=== PATIENT | female | born 1950 | race Two or more races ===

== ENCOUNTER → 2016-08-30 | Outpatient (CLI) | payer MEDICARE, MEDICAID | END | disposition home or self-care (01) | LOC: MRI 09:42 | PROVIDERS: ATTEND Internal Medicine Gastroenterology | DX: K76.0 Fatty (change of) liver, not elsewhere classified (principal); K86.2 Cyst of pancreas | CPT/HCPCS: 74181 ==

== ENCOUNTER → 2017-04-05 | Outpatient (CLI) | payer MEDICARE, MEDICAID | END | disposition home or self-care (01) | LOC: US 08:39 | PROVIDERS: ATTEND Internal Medicine Gastroenterology | DX: K74.60 Unspecified cirrhosis of liver (principal); D64.9 Anemia, unspecified | CPT/HCPCS: 76700 ==

== ENCOUNTER → 2017-09-28 | Outpatient (CLI) | payer MEDICARE, MEDICAID | END | disposition home or self-care (01) | LOC: US 07:52 | PROVIDERS: ATTEND Internal Medicine Gastroenterology | DX: K76.89 Other specified diseases of liver (principal); K82.4 Cholesterolosis of gallbladder; D73.89 Other diseases of spleen | CPT/HCPCS: 76700 ==

== ENCOUNTER 2021-06-26 08:53 | Emergency (ER) | payer MEDICARE, MEDICAID ==
[~2021-06-26] VITALS: Ht 162.6 cm; Wt 68.0 kg
[~2021-06-26 08:53] MED LIST: AMLO10TA80 MT; ASPI-1497 MT; ATOR20TA MT; SERT50TA MT
[2021-06-26] MEDS ORDERED: KETOROLAC 30MG/ML VIAL IV STA (10:52)
[2021-06-26] MEDS ORDERED: KETOROLAC 15MG/ML VIAL IV NR (12:00)
[2021-06-26 12:02] VITALS: BP 162/92
[2021-06-26] MEDS ORDERED: ACET650T37 MT (12:22)
== END 2021-06-26 12:51 | disposition home or self-care (01) ==
LOC: ER 08:53
DX: M25.512 Pain in left shoulder (principal); M79.632 Pain in left forearm; M54.2 Cervicalgia; M25.522 Pain in left elbow; E78.00 Pure hypercholesterolemia, unspecified; I10 Essential (primary) hypertension; Z79.82 Long term (current) use of aspirin
CPT/HCPCS: 70450; 71045; 72125; 73030; 73080; 73090; 96374; 99284; J1885